=== PATIENT | male | born 1960 ===

== ENCOUNTER 2016-12-30 09:22 | Emergency (ER) | payer OTHER ==
--- NOTE | 2016-12-30 09:58 | ED PDOC ---
HPI: General Adult Time Seen by Provider: 12/30/16 09:45 Chief Complaint (Provider): swelling and discharge to right 3rd finger History Per: Patient History/Exam Limitations: no limitations Onset/Duration Of Symptoms: Days (4) Additional Complaint(s): 56yo male comes to the ED complaining of swelling, discharge and pain to right third finger for 3 days. No fever. No other complaints. Past Medical History Reviewed: Historical Data, Nursing Documentation, Vital Signs Vital Signs: Last Vital Signs Temp 97 F L 12/30/16 09:39 Pulse 72 12/30/16 09:39 Resp BP 106/67 12/30/16 09:39 Pulse Ox 96 12/30/16 10:03 - Medical History PMH: No Chronic Diseases - Surgical History Surgical History: No Surg Hx - Family History Family History: States: Unknown Family Hx - Immunization History Hx Tetanus Toxoid Vaccination: Yes Hx Influenza Vaccination: No Hx Pneumococcal Vaccination: No - Home Medications Home Medications: Ambulatory Orders Medication Instructions Recorded Cephalexin [Keflex] 500 mg PO BID #14 capsule 12/30/16 - Allergies Allergies/Adverse Reactions: Allergies Allergy/AdvReac Type Severity Reaction Status Date / Time No Known Allergies Allergy Verified 12/30/16 10:07 Review of Systems ROS Statement: Except As Marked, All Systems Reviewed And Found Negative Constitutional: Negative for: Fever Physical Exam - Reviewed Nursing Documentation Reviewed: Yes Vital Signs Reviewed: Yes - Physical Exam Appears: Positive for: Well, Non-toxic, No Acute Distress Head Exam: Positive for: ATRAUMATIC, NORMAL INSPECTION, NORMOCEPHALIC Skin: Positive for: Warm, Dry Extremity: Positive for: Other (dorsal aspect of right 3rd finger, distal phallanx, peringuinal space: open abscess, spontaneously drained. with swelling but no tenderness, redness or fluctuance ) - ECG O2 Sat by Pulse Oximetry: 96 (RA) Pulse Ox Interpretation: Normal Medical Decision Making Medical Decision Making: Stable for discharge. Instructed Rx Keflex. Use warm compresses, advil. Disposition - Clinical Impression Clinical Impression: Paronychia - Patient ED Disposition Is Patient to be Admitted: No Doctor Will See Patient In The: Office Counseled Patient/Family Regarding: Studies Performed, Diagnosis, Need For Followup - Disposition Referrals: [facility] [Outside] Disposition: Routine/Home Disposition Time: 11:22 Condition: GOOD Additional Instructions: Follow up with your PCP in 2-3 days. Apply warm water compresses. Take advil for pain. Prescriptions: Cephalexin [Keflex] 500 mg PO BID #14 capsule Instructions: Paronychia (ED) Additional Comments - Additional Comments Additional Comments: Scribe Attestation Documented by Gerardo Johansen, acting as a scribe for Cl Garza MD. Provider Scribe Attestation All medical record entries made by the Scribe were at my direction and personally dictated by me. I have reviewed the chart and agree that the record accurately reflects my personal performance of the history, physical exam, medical decision making, and the department course for this patient. I have also personally directed, reviewed, and agree with the discharge instructions and disposition.
[2016-12-30 10:01] VITALS: BP 106/67; PULSE 72; TEMP 97; O2SAT 96
[2016-12-30] MEDS ORDERED: TDAP Vaccine 0.5 mL Syr IM ONE (10:04)
== END 2016-12-30 11:57 | disposition home or self-care (01) ==
LOC: H.ER 09:22
DX: L03.019 Cellulitis of unspecified finger (principal)

== ENCOUNTER 2018-11-06 10:33 | Emergency (ER) | payer OTHER ==
[2018-11-06 10:40] VITALS: PULSE 67; O2SAT 98
--- NOTE | 2018-11-06 11:14 | ED PDOC ---
HPI: Male Pain Time Seen by Provider: 11/06/18 11:12 Chief Complaint (Nursing): Male Genitourinary Chief Complaint (Provider): dysuria History Per: Patient Additional Complaint(s): 58-year-old male presents with dysuria and penile discharge for 2 days. Patient is concerned about possible STD. He denies any abdominal pain or back pain, no fever or chills. Patient admits to recent unprotected intercourse. patient also has secondary complaint of shoulder pain ongoing for about 2 years. He denies trauma or injury. Patient is [id number]. PMD: none Past Medical History Reviewed: Historical Data, Nursing Documentation, Vital Signs Vital Signs: Last Vital Signs Temp 97.9 F 11/06/18 10:39 Pulse 67 11/06/18 10:39 Resp 20 11/06/18 10:39 BP 111/70 11/06/18 10:39 Pulse Ox 98 11/06/18 10:39 - Medical History PMH: No Chronic Diseases - Surgical History Surgical History: No Surg Hx - Family History Family History: States: No Known Family Hx - Living Arrangements Living Arrangements: With Family - Social History Current smoker - smoking cessation education provided: No Alcohol: Social Drugs: Denies - Home Medications Home Medications: Ambulatory Orders Medication Instructions Recorded Cephalexin [Keflex] 500 mg PO BID #14 capsule 12/30/16 Ibuprofen [Motrin Tab] 800 mg PO Q8 PRN #20 tab 11/06/18 - Allergies Allergies/Adverse Reactions: Allergies Allergy/AdvReac Type Severity Reaction Status Date / Time No Known Allergies Allergy Verified 11/06/18 11:04 Review of Systems ROS Statement: Except As Marked, All Systems Reviewed And Found Negative Constitutional: Negative for: Fever Cardiovascular: Negative for: Chest Pain Respiratory: Negative for: Cough Gastrointestinal: Negative for: Nausea, Vomiting Genitourinary Male: Positive for: Dysuria, Penile Discharge Musculoskeletal: Positive for: Shoulder Pain (right) Physical Exam - Reviewed Nursing Documentation Reviewed: Yes Vital Signs Reviewed: Yes - Physical Exam Appears: Positive for: Well, Non-toxic, No Acute Distress Skin: Positive for: Normal Color. Negative for: Rash Eye Exam: Positive for: Normal appearance Neck: Positive for: Normal Cardiovascular/Chest: Positive for: Regular Rate, Rhythm Respiratory: Positive for: Normal Breath Sounds Gastrointestinal/Abdominal: Positive for: Soft. Negative for: Tenderness, Dist ended, Guarding Extremity: Positive for: Normal ROM. Negative for: Tenderness Neurologic/Psych: Positive for: Alert, Oriented - Laboratory Results Urine dip results: Positive for: Blood (trace). Negative for: Leukocyte Esterase, Nitrate, Ketones, Glucose, Bilirubin, Protein - ECG O2 Sat by Pulse Oximetry: 98 Pulse Ox Interpretation: Normal Medical Decision Making Medical Decision Makin58 y/o with penile discharge Plan: UA Urine culture 250 mg IM rocephin 1 gram PO zithromax Patient given rx motrin for shoulder pain and he was referred to clinic for follow up. Disposition - Clinical Impression Clinical Impression: STD (sexually transmitted disease), Shoulder pain, Dysuria - Patient ED Disposition Is Patient to be Admitted: No Counseled Patient/Family Regarding: Studies Performed, Diagnosis, Need For Followup, Rx Given - Disposition Referrals: [facility] [Outside] Disposition: Routine/Home Disposition Time: 12:52 Condition: STABLE Additional Instructions: Take prescription meds as directed as needed for pain. Follow-up with clinic for further evaluation. Prescriptions: Ibuprofen [Motrin Tab] 800 mg PO Q8 PRN #20 tab PRN Reason: Pain, Moderate (4-7) Instructions: Dysuria, Adult (DC), Sexually-Transmitted Diseases (DC), Shoulder Pain (DC) Forms: [employer] (Croatian) Print Language: UKRAINIAN
[2018-11-06] MEDS ORDERED: cefTRIAXone (Rocephin) 250 mg Inj IM STA (11:59)
[2018-11-06 12:47] LABS: SQUAMOUS EPITHIAL < 1 /hpf (0-5); URINE BILIRUBIN NEGATIVE (NEGATIVE); URINE BLOOD NEGATIVE (NEGATIVE); URINE CLARITY CLEAR (Clear); URINE COLOR YELLOW (YELLOW); URINE GLUCOSE (UA) NEG (NEGATIVE); URINE LEUKOCYTE ESTERASE NEG Leu/uL (Negative); URINE PROTEIN NEGATIVE (NEGATIVE); URINE UROBILINOGEN 0.2-1.0 mg/dL (0.2-1.0)
[2018-11-06] MEDS ORDERED: cefTRIAXone (Rocephin) 250 mg Inj ONE (13:07)
[2018-11-06 13:30] VITALS: BP 120/75; RESP 16; TEMP 97.8
== END 2018-11-06 13:31 | disposition home or self-care (01) ==
LOC: H.ER 10:33
DX: A64 Unspecified sexually transmitted disease (principal); M25.511 Pain in right shoulder; R30.0 Dysuria
CPT/HCPCS: 81003; 87086; 96372; 99282; J0696

== ENCOUNTER 2018-11-22 10:31 | Emergency (ER) | payer OTHER ==
[2018-11-22] MEDS ORDERED: Iohexol 240 (50 ml) PO STA (11:58)
[2018-11-22] MEDS ORDERED: Sodium Chloride 0.9% 1,000 ML IV STA (11:59)
[2018-11-22] MEDS ORDERED: Iohexol 240 (50 ml) ONE (12:21)
[2018-11-22 12:23] LABS: VENOUS BLOOD GAS PCO2 38 mmHg (40-60); VENOUS BLOOD GAS PO2 32 mm/Hg (30-55); VENOUS BLOOD PH 7.43 (7.32-7.43)
[2018-11-22 12:30] LABS: BASO % 0.3 % (0.0-2.0); EOS % 0.3 % (0.0-4.0); HEMOGLOBIN 13.6 g/dL (12.0-18.0); LYMPH # 1.3 K/uL (1.0-4.3); LYMPH % 16.5 % (20.0-40.0); MEAN CELL VOLUME 86.7 fl (80.0-94.0); MEAN CORPUSCULAR HEMOGLOBIN 30.1 pg (27.0-31.0); MEAN CORPUSCULAR HGB CONC 34.7 g/dL (33.0-37.0); MEAN PLATELET VOLUME 8.6 fl (7.2-11.7); MONO # 0.9 K/uL (0.0-0.8); MONO % 11.2 % (0.0-10.0); NEUT # 5.8 K/uL (1.8-7.0); NEUT % 71.7 % (50.0-75.0); NRBC % 0.1 % (0.0-0.0); RBC 4.53 Mil/uL (4.40-5.90); RED CELL DISTRIBUTION WIDTH 13.2 % (11.5-14.5); WHITE BLOOD COUNT 8.1 K/uL (4.8-10.8)
[2018-11-22 12:37] LABS: ALB/GLOB RATIO 1.2 (1.0-2.1); ALBUMIN 3.7 g/dL (3.5-5.0); ALT/SGPT 36 U/L (21-72); AST/SGOT 32 U/L (17-59); BLOOD UREA NITROGEN 13 mg/dl (9-20); CALCIUM 8.3 mg/dL (8.4-10.2); GFR NON-AFRICAN AMERICAN > 60; LIPASE 53 U/L (23-300)
--- NOTE | 2018-11-22 12:37 | ED PDOC ---
HPI: Abdomen Time Seen by Provider: 11/22/18 11:33 Chief Complaint (Nursing): Abdominal Pain Chief Complaint (Provider): Abdominal Pain History Per: Patient History/Exam Limitations: no limitations Onset/Duration Of Symptoms: Days (x4) Associated Symptoms: Fever, Chills, Diarrhea. denies: Vomiting Additional Complaint(s): 58 years old male presents to ER for evaluation of worsening abdominal pain and diarrhea onset 4 days ago. Patient reports attempting to take imodium and pepto- bismol without relief of symptoms. He reports 3 episodes of large watery diarrhea this morning. Patient states anything he eats or drinks results in immediate diarrhea. He reports feeling weak, feverish and chills but has not taken temperature. Patient denies vomiting. PMD: No provider Past Medical History Reviewed: Historical Data, Nursing Documentation, Vital Signs Vital Signs: Last Vital Signs Temp 98.3 F 11/22/18 10:34 Pulse 67 11/22/18 10:34 Resp 18 11/22/18 10:34 BP 128/72 11/22/18 10:34 Pulse Ox 99 11/22/18 10:34 - Medical History PMH: No Chronic Diseases - Surgical History Surgical History: No Surg Hx - Family History Family History: States: Unknown Family Hx - Social History Current smoker - smoking cessation education provided: No Alcohol: None Drugs: Denies - Immunization History Hx Tetanus Toxoid Vaccination: Yes Hx Influenza Vaccination: No Hx Pneumococcal Vaccination: No - Allergies Allergies/Adverse Reactions: Allergies Allergy/AdvReac Type Severity Reaction Status Date / Time No Known Allergies Allergy Verified 11/22/18 11:10 Review of Systems ROS Statement: Except As Marked, All Systems Reviewed And Found Negative Constitutional: Positive for: Fever, Chills Gastrointestinal: Positive for: Abdominal Pain, Diarrhea. Negative for: Vomiting Neurological: Positive for: Weakness Physical Exam - Reviewed Nursing Documentation Reviewed: Yes Vital Signs Reviewed: Yes - Physical Exam Appears: Positive for: No Acute Distress. Negative for: Well (Patient appears tired and weak) Head Exam: Positive for: ATRAUMATIC, NORMOCEPHALIC Skin: Positive for: Normal Color, Warm, Dry Eye Exam: Positive for: Normal appearance, EOMI, PERRL Neck: Positive for: Normal, Painless ROM, Supple Cardiovascular/Chest: Positive for: Regular Rate, Rhythm. Negative for: Murmur Respiratory: Positive for: Normal Breath Sounds. Negative for: Respiratory Distress Gastrointestinal/Abdominal: Positive for: Tenderness (Diffused right upper and lower) Back: Positive for: Normal Inspection. Negative for: L CVA Tenderness, R CVA Tenderness Extremity: Positive for: Normal ROM. Negative for: Pedal Edema, Swelling Neurologic/Psych: Positive for: Alert, Oriented (x3) - Laboratory Results Result Diagrams: 11/22/18 12:23 11/22/18 12:23 Lab Results: pO2 32 mm/Hg (30-55) 11/22/18 12:02 VBG pH 7.43 (7.32-7.43) 11/22/18 12:02 VBG pCO2 38 mmHg (40-60) L 11/22/18 12:02 VBG HCO3 24.9 mmol/L 11/22/18 12:02 VBG Total CO2 26.4 mmol/L (22-28) 11/22/18 12:02 VBG O2 Sat (Calc) 70.8 % (40-65) H 11/22/18 12:02 VBG Base Excess 1.0 mmol/L (0.0-2.0) 11/22/18 12:02 VBG Potassium 3.0 mmol/L (3.6-5.2) L 11/22/18 12:02 Sodium 135.0 mmol/L (132-148) 11/22/18 12:02 Chloride 106.0 mmol/L (98-107) 11/22/18 12:02 Glucose 93 mg/dL (75-110) 11/22/18 12:02 Lactate 0.6 mmol/L (0.7-2.1) L 11/22/18 12:02 FiO2 21.0 % 11/22/18 12:02 - ECG O2 Sat by Pulse Oximetry: 99 (RA) Pulse Ox Interpretation: Normal Medical Decision Making Medical Decision Making: Time: 1159 MDM: Workup for abdominal pathology --Possible cholecystitis vs. appendicitis --Labs --Toradol --IV fluids --CT abdomen/pelvis --Reassess patient 1500 CT Abdomen/Pelvis FINDINGS: LOWER THORAX: Unremarkable. LIVER: Unremarkable. No gross lesion or ductal dilatation. GALLBLADDER AND BILE DUCTS: Gallstones. PANCREAS: Unremarkable. No gross lesion or ductal dilatation. SPLEEN: Unremarkable. ADRENALS: Unremarkable. No mass. KIDNEYS AND URETERS: Unremarkable. No hydronephrosis. No solid mass. VASCULATURE: Unremarkable. No aortic aneurysm. No aortic atherosclerotic calcification or mural plaque present. BOWEL: Unremarkable. No obstruction. No gross mural thickening. APPENDIX: Normal appendix. PERITONEUM: Unremarkable. No free fluid. No free air. LYMPH NODES: Unremarkable. No enlarged lymph nodes. BLADDER: Unremarkable. REPRODUCTIVE: Prostate enlargement. BONES: No acute fracture. OTHER FINDINGS: Right inguinal hernia containing fluid. IMPRESSION: Cholelithiasis.Right inguinal hernia containing fluid. [address] shows cholelitiasis and right inguinal hernia. nurse administrator surgeon paged. [id number] Evaluated by surgical instrument mechanic. No indication for admission or physical intervention at this time. Upon provider reevaluation, patient is medically stable, reports improvement in symptoms, and tolerating PO. Patient will be discharged home. Advised to follow up with PCP regarding hematuria and provided a referral for outpatient surgical site. Counseling was provided and all questions were answered regarding diagnosis. There is agreement to discharge plan. Return if symptoms persist or worsen. Clinical Impression: Hematuria; Abdominal discomfort Scribe Attestation: Documented by Anabel Rivera, acting as a scribe for Sofia Kasper MD. Provider Scribe Attestation: All medical record entries made by the Scribe were at my direction and personally dictated by me. I have reviewed the chart and agree that the record accurately reflects my personal performance of the history, physical exam, medical decision making, and the department course for this patient. I have also personally directed, reviewed, and agree with the discharge instructions and disposition. Disposition - Clinical Impression Clinical Impression: Abdominal discomfort, Hematuria - Patient ED Disposition Is Patient to be Admitted: No Counseled Patient/Family Regarding: Studies Performed, Diagnosis, Need For Followup - Disposition Referrals: [facility] [Outside] Mike Berumen MD [Staff Provider] - Disposition: Routine/Home Disposition Time: 16:54 Condition: IMPROVED Additional Instructions: Increase rest and drink more water while symptoms last. Follow up with primary medical doctor or surgical clinic. Return to the emergency department if symptoms worsen or if new symptoms develop. Instructions: Blood in the Urine (Hematuria) in Adults, Viral Gastroenteritis, Blood in the Urine (Hematuria), Adult (DC), Viral Gastroenteritis, Adult (DC) Forms: [employer] (Tanzanian), [employer] (Maori) Print Language: CYMRAES
[2018-11-22] MEDS ORDERED: Sodium Chloride 0.9% 50 ML IV ONE (14:00)
[2018-11-22] MEDS ORDERED: Iohexol 300 100 ML IJ ONE (14:00)
[2018-11-22 14:42] LABS: SQUAMOUS EPITHIAL < 1 /hpf (0-5); URINE BACTERIA OCC (<OCC); URINE BILIRUBIN NEGATIVE (NEGATIVE); URINE BLOOD MODERATE (NEGATIVE); URINE CLARITY CLEAR (Clear); URINE COLOR YELLOW (YELLOW); URINE GLUCOSE (UA) NEG (NEGATIVE); URINE LEUKOCYTE ESTERASE NEG Leu/uL (Negative); URINE PROTEIN NEGATIVE (NEGATIVE)
--- NOTE | 2018-11-22 15:04 | CT ---
Date of service: 11/22/2018 PROCEDURE: CT Abdomen and Pelvis with contrast HISTORY: abdominal pain, diarrhea, worse on right COMPARISON: 2147 TECHNIQUE: Contrast dose: Radiation dose: Total exam DLP = 500.17 mGy-cm. This CT exam was performed using one or more of the following dose reduction techniques: Automated exposure control, adjustment of the mA and/or kV according to patient size, and/or use of iterative reconstruction technique. FINDINGS: LOWER THORAX: Unremarkable. LIVER: Unremarkable. No gross lesion or ductal dilatation. GALLBLADDER AND BILE DUCTS: Gallstones. PANCREAS: Unremarkable. No gross lesion or ductal dilatation. SPLEEN: Unremarkable. ADRENALS: Unremarkable. No mass. KIDNEYS AND URETERS: Unremarkable. No hydronephrosis. No solid mass. VASCULATURE: Unremarkable. No aortic aneurysm. No aortic atherosclerotic calcification or mural plaque present. BOWEL: Unremarkable. No obstruction. No gross mural thickening. APPENDIX: Normal appendix. PERITONEUM: Unremarkable. No free fluid. No free air. LYMPH NODES: Unremarkable. No enlarged lymph nodes. BLADDER: Unremarkable. REPRODUCTIVE: Prostate enlargement. BONES: No acute fracture. OTHER FINDINGS: Right inguinal hernia containing fluid. IMPRESSION: Cholelithiasis.Right inguinal hernia containing fluid.
--- NOTE | 2018-11-22 16:23 | CP.PCM.CON ---
History of Present Illness - History of Present Illness History of Present Illness: Surgery Consult Note for Dr. Berumen Consult: Abdominal pain HPI: 58M, remote history of alcohol abuse, presents to the emergency department with epigastric and right sided abdominal pain and non-bloody diarrhea. Patient states the pain feels like his insides are being "tickled." Denies any radiation. Onset was Saturday has remained relatively constant with nothing aggravating or alleviating his symptoms. He has never experienced similar symptoms. Current pain rated as 6-7/10. Patient states his abdomen is distended however no more than usual. Took advil for a headache otherwise no other medications for symptomatic relief. Admits to one subjective fever earlier this week. Denies chills, nausea, vomiting, constipation, dizziness, shortness of breath, chest pain, or urinary symptoms. PMH: Alcohol abuse PSH: Denies FH: Noncontributory SH: Quit alcohol and tobacco use 8 years ago, denies illicit drugs ALL: NKDA Meds: Advil PRN Review of Systems - Constitutional Constitutional: absent: Chills, Fever - EENT Eyes: absent: Blurred Vision, Change in Vision Nose/Mouth/Throat: absent: Nasal Congestion, Nasal Discharge - Cardiovascular Cardiovascular: absent: Chest Pain, Dyspnea - Respiratory Respiratory: absent: Cough, Dyspnea - Gastrointestinal Gastrointestinal: Abdominal Pain, Bloating, Diarrhea. absent: Constipation, Cramping, Hematemesis, Nausea, Vomiting - Genitourinary Genitourinary: absent: Difficulty Urinating, Dysuria - Musculoskeletal Musculoskeletal: absent: Back Pain, Neck Pain - Integumentary Integumentary: absent: Bleeding Lesions, Changing Lesions - Neurological Neurological: absent: Abnormal Hearing, Confusion - Psychiatric Psychiatric: absent: Anxiety, Depression Past Patient History - Infectious Disease Hx of Infectious Diseases: None - Past Social History Alcohol: None Drugs: Denies - PSYCHIATRIC Hx Substance Use: No - SURGICAL HISTORY Hx Surgeries: No - ANESTHESIA Hx Anesthesia: No Meds Allergies/Adverse Reactions: Allergies Allergy/AdvReac Type Severity Reaction Status Date / Time No Known Allergies Allergy Verified 11/22/18 11:10 Physical Exam - Constitutional Appears: Well, Non-toxic, No Acute Distress - Head Exam Head Exam: ATRAUMATIC, NORMAL INSPECTION, NORMOCEPHALIC - Eye Exam Eye Exam: EOMI - ENT Exam ENT Exam: Mucous Membranes Moist - Respiratory Exam Respiratory Exam: NORMAL BREATHING PATTERN. absent: Respiratory Distress - Cardiovascular Exam Cardiovascular Exam: REGULAR RHYTHM. absent: Tachycardia - GI/Abdominal Exam GI & Abdominal Exam: Distended, Hernia, Soft, Tenderness. absent: Guarding, Rebound Additional comments: diastasis recti - Rectal Exam Rectal Exam: Deferred (patient refused) - Exam Exam: absent: Scrotal Swelling, Testicular Tenderness - Neurological Exam Neurological exam: Normal Gait, Oriented x3 - Psychiatric Exam Psychiatric exam: Normal Affect, Normal Mood - Skin Skin Exam: Dry, Intact, Normal Color, Warm Results - Vital Signs Recent Vital Signs: Last Vital Signs Temp 98 F 11/22/18 16:03 Pulse 78 11/22/18 16:03 Resp 18 11/22/18 16:03 BP 110/72 11/22/18 16:03 Pulse Ox 100 11/22/18 16:03 - Labs Result Diagrams: 11/22/18 12:23 11/22/18 12:23 Labs: Laboratory Results - last 24 hr 11/22/18 11/22/18 11/22/18 12:02 12:23 12:23 WBC 8.1 RBC 4.53 Hgb 13.6 Hct 39.3 MCV 86.7 MCH 30.1 MCHC 34.7 RDW 13.2 Plt Count 194 MPV 8.6 Neut % (Auto) 71.7 Lymph % (Auto) 16.5 L [place] % (Auto) 11.2 H Eos % (Auto) 0.3 Baso % (Auto) 0.3 Neut # (Auto) 5.8 Lymph # (Auto) 1.3 [place] # (Auto) 0.9 H Eos # (Auto) 0.0 Baso # (Auto) 0.0 pO2 32 VBG pH 7.43 VBG pCO2 38 L VBG HCO3 24.9 VBG Total CO2 26.4 VBG O2 Sat (Calc) 70.8 H VBG Base Excess 1.0 VBG Potassium 3.0 L Sodium 135.0 139 Chloride 106.0 103 Glucose 93 Lactate 0.6 L FiO2 21.0 Potassium 3.2 L Carbon Dioxide 22 Anion Gap 17 BUN 13 Creatinine 0.6 L Est GFR ( Amer) > 60 Est GFR (Non-Af Amer) > 60 Random Glucose 92 Calcium 8.3 L Total Bilirubin 0.9 AST 32 ALT 36 Alkaline Phosphatase 73 Total Protein 6.7 Albumin 3.7 Globulin 3.0 Albumin/Globulin Ratio 1.2 Lipase 53 Venous Blood Potassium 3.0 L Urine Color Urine Clarity Urine pH Ur Specific [place] Urine Protein Urine Glucose (UA) Urine Ketones Urine Blood Urine Nitrate Urine Bilirubin Urine Urobilinogen Ur Leukocyte Esterase Urine RBC (Auto) Urine Microscopic WBC Ur Squamous Epith Cells Urine Bacteria 11/22/18 13:13 WBC RBC Hgb Hct MCV MCH MCHC RDW Plt Count MPV Neut % (Auto) Lymph % (Auto) [place] % (Auto) Eos % (Auto) Baso % (Auto) Neut # (Auto) Lymph # (Auto) [place] # (Auto) Eos # (Auto) Baso # (Auto) pO2 VBG pH VBG pCO2 VBG HCO3 VBG Total CO2 VBG O2 Sat (Calc) VBG Base Excess VBG Potassium Sodium Chloride Glucose Lactate FiO2 Potassium Carbon Dioxide Anion Gap BUN Creatinine Est GFR ( Amer) Est GFR (Non-Af Amer) Random Glucose Calcium Total Bilirubin AST ALT Alkaline Phosphatase Total Protein Albumin Globulin Albumin/Globulin Ratio Lipase Venous Blood Potassium Urine Color Yellow Urine Clarity Clear Urine pH 6.0 Ur Specific [place] 1.020 Urine Protein Negative Urine Glucose (UA) Neg Urine Ketones Trace Urine Blood Moderate Urine Nitrate Negative Urine Bilirubin Negative Urine Urobilinogen 2.0 Ur Leukocyte Esterase Neg Urine RBC (Auto) 7 H Urine Microscopic WBC 1 Ur Squamous Epith Cells < 1 Urine Bacteria Occ H Assessment & Plan - Assessment and Plan (Free Text) Assessment: 58M w/ epigastric and right sided abdominal pain, diarrhea likely 2/[address] scan shows cholelithiasis, small umbilical hernia, right inguinal hernia - no obstruction Plan: Recommend bland/soft diet No surgical intervention indicated at this time If symptoms worsen, return to the ED Follow up with Dr. Berumen and his primary within 1 week D/w Dr. Ata Huber PGY1
[2018-11-22 17:14] VITALS: BP 116/67; PULSE 65; RESP 17; TEMP 98.9; O2SAT 97
== END 2018-11-22 17:30 | disposition home or self-care (01) ==
LOC: H.ER 10:31
DX: R31.9 Hematuria, unspecified (principal); R10.9 Unspecified abdominal pain; K40.90 Unilateral inguinal hernia, without obstruction or gangrene, not specified as recurrent; K80.20 Calculus of gallbladder without cholecystitis without obstruction; R11.0 Nausea
CPT/HCPCS: 74177; 80053; 81003; 82803; 83605; 83690; 85025; 96374; 96375; 99284; J1885; J2270; J2405; J7030; Q9966; Q9967

== ENCOUNTER 2019-01-05 09:36 | Emergency (ER) | payer OTHER ==
[2019-01-05 09:40] VITALS: BMI 29.2
[2019-01-05 12:20] LABS: BASO % 0.7 % (0.0-2.0); EOS # 0.1 K/uL (0.0-0.7); EOS % 2.6 % (0.0-4.0); LYMPH # 1.4 K/uL (1.0-4.3); LYMPH % 29.4 % (20.0-40.0); MEAN CELL VOLUME 88.2 fl (80.0-94.0); MEAN CORPUSCULAR HEMOGLOBIN 29.8 pg (27.0-31.0); MEAN CORPUSCULAR HGB CONC 33.8 g/dL (33.0-37.0); MEAN PLATELET VOLUME 9.5 fl (7.2-11.7); MONO # 0.4 K/uL (0.0-0.8); MONO % 9.2 % (0.0-10.0); NEUT # 2.8 K/uL (1.8-7.0); NEUT % 58.1 % (50.0-75.0); NRBC % 0.1 % (0.0-0.0); RBC 5.05 Mil/uL (4.40-5.90); RED CELL DISTRIBUTION WIDTH 13.6 % (11.5-14.5); WHITE BLOOD COUNT 4.9 K/uL (4.8-10.8)
[2019-01-05 12:31] LABS: SQUAMOUS EPITHIAL < 1 /hpf (0-5); URINE BILIRUBIN NEGATIVE (NEGATIVE); URINE BLOOD NEGATIVE (NEGATIVE); URINE CLARITY CLEAR (Clear); URINE COLOR STRAW (YELLOW); URINE GLUCOSE (UA) NEG (NEGATIVE); URINE LEUKOCYTE ESTERASE NEG Leu/uL (Negative); URINE PROTEIN NEGATIVE (NEGATIVE); URINE UROBILINOGEN 0.2-1.0 mg/dL (0.2-1.0)
[2019-01-05 12:35] LABS: BLOOD UREA NITROGEN 17 mg/dl (9-20); CALCIUM 9.1 mg/dL (8.4-10.2); GFR NON-AFRICAN AMERICAN > 60
--- NOTE | 2019-01-05 14:59 | CT ---
Date of service: 01/05/2019 PROCEDURE: CT Cervical Spine without contrast HISTORY: trauma r/o fx COMPARISON: None available. TECHNIQUE: Axial computed tomography images were obtained of the cervical spine without the use of intravenous contrast. Coronal and sagittal reformatted images were created and reviewed. Radiation dose: Total exam DLP = 346.49 mGy-cm. This CT exam was performed using one or more of the following dose reduction techniques: Automated exposure control, adjustment of the mA and/or kV according to patient size, and/or use of iterative reconstruction technique. FINDINGS: VERTEBRAE: No fracture. Normal alignment. No destructive bony lesion. DISCS/SPINAL CANAL/NEURAL FORAMINA: No significant central canal or neural foraminal stenosis. Discs heights are grossly preserved. A tiny central disc protrusion is identified at C3-4. No moderate or large disc herniation throughout the cervical spine. PARASPINAL SOFT TISSUES: Unremarkable. OTHER FINDINGS: No apical pulmonary masses as imaged. IMPRESSION: 1. No fracture or spondylolisthesis appreciable. No significant central canal or neural foraminal stenosis appreciated throughout the cervical spine. 2. Tiny central disc protrusion C3-4.
--- NOTE | 2019-01-05 15:09 | ED PDOC ---
HPI: Male Pain Time Seen by Provider: 01/05/19 10:24 Chief Complaint (Nursing): Male Genitourinary Chief Complaint (Provider): Neck Pain, Urinary Hesitancy History Per: Patient History/Exam Limitations: no limitations Onset/Duration Of Symptoms: Days Current Symptoms Are (Timing): Still Present Associated Symptoms: Urinary Symptoms Additional Complaint(s): 58 year old male presents to the emergency department complaining of right arm pain for 1 month. Pain is worse with movement. Patient describes the pain as radiating down from the neck. He denies any extremity weakness, numbness, tingling, headaches, change in gait, change in speech, or trauma/injury. Patient is also complaining of urinary hesitancy and urgency, which has been ongoing for many months. No hematuria, rash, or testicular pain. No fevers or chills. 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 Admits he has not seen a doctor in many years. PMD: None Past Medical History Reviewed: Historical Data, Nursing Documentation, Vital Signs - Family History Family History: States: Unknown Family Hx - Immunization History Hx Tetanus Toxoid Vaccination: Yes Hx Influenza Vaccination: No Hx Pneumococcal Vaccination: No - Home Medications Home Medications: Ambulatory Orders Medication Instructions Recorded Ibuprofen [Motrin Tab] 600 mg PO Q6 PRN #15 tab 01/05/19 - Allergies Allergies/Adverse Reactions: Allergies Allergy/AdvReac Type Severity Reaction Status Date / Time No Known Allergies Allergy Verified 11/22/18 11:10 Review of Systems ROS Statement: Except As Marked, All Systems Reviewed And Found Negative Constitutional: Negative for: Fever, Chills Cardiovascular: Negative for: Chest Pain Respiratory: Negative for: Cough, Shortness of Breath Gastrointestinal: Negative for: Nausea, Vomiting, Diarrhea Genitourinary Male: Positive for: Other (Urinary hesitency and urgency). Negative for: Incontinence, Hematuria, Rash Musculoskeletal: Positive for: Neck Pain (right), Shoulder Pain (right), Arm Pain (right) Skin: Negative for: Rash, Lesions Neurological: Negative for: Weakness, Numbness, Headache, Dizziness Physical Exam - Reviewed Nursing Documentation Reviewed: Yes Vital Signs Reviewed: Yes - Physical Exam Appears: Positive for: Well, Non-toxic, No Acute Distress Head Exam: Positive for: ATRAUMATIC, NORMOCEPHALIC Skin: Positive for: Normal Color, Warm Eye Exam: Positive for: EOMI, Normal appearance, PERRL Neck: Positive for: Supple, Trachea Midline Cardiovascular/Chest: Positive for: Regular Rate, Rhythm, Chest Non Tender Respiratory: Positive for: Normal Breath Sounds. Negative for: Accessory Muscle Use, Respiratory Distress Pulses-Radial (L): 2+ Pulses-Radial (R): 2+ Gastrointestinal/Abdominal: Positive for: Normal Exam, Soft. Negative for: Tenderness, Distended Back: Positive for: Other (tenderness along the right trapezius, (+) right paracervical tenderness) Extremity: Positive for: Tenderness (to right shoulder), Capillary Refill (less than 2 sec), Other (increased pain on ROM of right shoulder). 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 Negative for: Motor/Sensory Deficits - Laboratory Results Result Diagrams: 01/05/19 11:10 01/05/19 11:10 Lab Results: Urine Color Straw (YELLOW) 01/05/19 11:10 Urine Clarity Clear (Clear) 01/05/19 11:10 Urine pH 6.0 (5.0-8.0) 01/05/19 11:10 Ur Specific [place] 1.013 (1.003-1.030) 01/05/19 11:10 Urine Protein Negative mg/dL (NEGATIVE) 01/05/19 11:10 Urine Glucose (UA) Neg mg/dL (NEGATIVE) 01/05/19 11:10 Urine Ketones Negative mg/dL (NEGATIVE) 01/05/19 11:10 Urine Blood Negative (NEGATIVE) 01/05/19 11:10 Urine Nitrate Negative (NEGATIVE) 01/05/19 11:10 Urine Bilirubin Negative (NEGATIVE) 01/05/19 11:10 Urine Urobilinogen 0.2-1.0 mg/dL (0.2-1.0) 01/05/19 11:10 Ur Leukocyte Esterase Neg Dion/uL (Negative) 01/05/19 11:10 Urine RBC (Auto) 2 /hpf (0-3) 01/05/19 11:10 Urine Microscopic WBC < 1 /hpf (0-5) 01/05/19 11:10 Ur Squamous Epith Cells < 1 /hpf (0-5) 01/05/19 11:10 - ECG ECG: Positive for: Interpreted By Me, Viewed By Me ECG Rhythm: Positive for: Sinus Bradycardia. Negative for: ST/T Changes Rate: 58 - Radiology X-Ray: Interpreted by Me, Viewed By Me X-Ray Interpretation: No Acute Disease Medical Decision Making Medical Decision Making: Will work up patient for ongoing right arm/neck pain, as well as urinary hesitancy and urgency. Initial Plan: Ordered blood work including PSA, UA, chest x-ray, and right shoulder x-ray. Will obtain cervical spine CT. Labs reviewed. UA is clear PSA is WNL X-rays reviewed by me, and show no acute findings. Cervical Spine CT results: IMPRESSION: 1. No fracture or spondylolisthesis appreciable. No significant central canal or neural foraminal stenosis appreciated throughout the cervical spine. 2. Tiny central disc protrusion C3-4. All findings discussed with patient. Final Impression: Radiculopathy, Cervical strain Upon provider reevaluation patient reports feeling better after receiving Toradol in the ED. Patient is medically stable and requires no further treatment in the ED at this time. Patient will be discharged home with Rx for Motrin. Counseling was provided and all questions were answered regarding diagnosis and need for follow up with the clinic. Also advised patient of the need for orthopedic follow-up and likely non-emergent further testing. There is agreement to discharge plan. Return if symptoms persist or worsen. Scribe Attestation: Documented by Delmy Brooks, acting as a scribe for Dr. Pilo Clement III, DO. Provider Scribe Attestation: All medical record entries made by the Scribe were at my direction and personally dictated by me. I have reviewed the chart and agree that the record accurately reflects my personal performance of the history, physical exam, medical decision making, and the department course for this patient. I have also personally directed, reviewed, and agree with the discharge instructions and disposition. Disposition - Clinical Impression Clinical Impression: Right arm pain, Radiculopathy - Patient ED Disposition Is Patient to be Admitted: No Counseled Patient/Family Regarding: Studies Performed, Diagnosis, Need For Followup, Rx Given - Disposition Referrals: [facility] [Outside] Disposition: Routine/Home Disposition Time: 15:58 Condition: STABLE Additional Instructions: Return to ER for any worse or new symptoms. Take medications as directed for pain. Followup with clinic for further testing and treatment. Prescriptions: Ibuprofen [Motrin Tab] 600 mg PO Q6 PRN #15 tab PRN Reason: Pain, Moderate (4-7) Instructions: Radiculopathy (DC), Cervical Muscle Strain (DC) Forms: [facility] (Serbian) Print Language: NICARAGUAN
[2019-01-05 16:34] VITALS: RESP 18
[2019-01-05 16:44] VITALS: BP 115/73; PULSE 64; TEMP 98.8; O2SAT 100
--- NOTE | 2019-01-05 16:46 | RAD ---
Date of service: 01/05/2019 HISTORY: SOB COMPARISON: 07/03/2013. TECHNIQUE: Chest PA and lateral views FINDINGS: LUNGS: No active pulmonary disease. PLEURA: No significant pleural effusion identified. No pneumothorax apparent. CARDIOVASCULAR: No aortic atherosclerotic calcification present. Normal cardiac size. No pulmonary vascular congestion. OSSEOUS STRUCTURES: No significant abnormalities. Old posterior lateral left healed rib fractures. VISUALIZED UPPER ABDOMEN: Normal. OTHER FINDINGS: None. IMPRESSION: No active disease. No significant interval change compared to the prior examination(s).
--- NOTE | 2019-01-05 16:51 | RAD ---
Date of service: 01/05/2019 PROCEDURE: Radiographs of the Right Shoulder HISTORY: R ARM PAIN COMPARISON: No prior. TECHNIQUE: 3 views obtained. FINDINGS: BONES: Normal. No fracture. JOINTS: Preserved glenohumeral relationship, acromioclavicular degenerative change: Mild SOFT TISSUES: Normal. OTHER FINDINGS: None. IMPRESSION: Mild acromioclavicular degenerative change. Otherwise unremarkable study
--- NOTE | 2019-01-07 14:07 | CARD ---
APPROVED REPORT Date of service: 01/05/2019 EKG Measurement Heart [id number] <Conclusion> Sinus bradycardia Otherwise normal ECG
== END 2019-01-05 16:40 | disposition home or self-care (01) ==
LOC: H.ER 09:36
DX: M54.12 Radiculopathy, cervical region (principal)